=== PATIENT | female | born 1985 ===

== ENCOUNTER 2017-09-09 13:41 | Emergency (ER) | payer OTHER ==
[~2017-09-09] VITALS: Ht 170.2 cm; Wt 62.6 kg
[2017-09-09] MEDS ORDERED: PRENATAL + DHA1 EAC1 (13:49)
== END 2017-09-09 19:04 | disposition home or self-care (01) ==
LOC: ER 13:41
DX: Z34.81 Encounter for supervision of other normal pregnancy, first trimester (principal); O20.0 Threatened abortion

== ENCOUNTER 2017-11-15 20:57 | Outpatient (CLI) | payer OTHER ==
[~2017-11-15 20:57] MED LIST: PRENATAL + DHA1 EAC1
== END 2017-11-16 10:09 | disposition home or self-care (01) ==
LOC: OBS/DEL 20:57
DX: O43.893 Other placental disorders, third trimester (principal); O47.1 False labor at or after 37 completed weeks of gestation; Z34.83 Encounter for supervision of other normal pregnancy, third trimester

== ENCOUNTER 2018-01-16 20:57 | Outpatient (CLI) | payer OTHER | END 2018-01-16 23:00 | disposition home or self-care (01) | LOC: OBS/DEL 20:57 | DX: O23.43 Unspecified infection of urinary tract in pregnancy, third trimester (principal); Z34.03 Encounter for supervision of normal first pregnancy, third trimester ==

== ENCOUNTER 2018-02-13 14:11 | Inpatient (IN) | payer OTHER ==
[~2018-02-13] VITALS: Ht 170.2 cm; Wt 78.0 kg
== END 2018-03-02 19:38 | disposition home or self-care (01) | DRG 775 ==
LOC: OB/GYN 02-27 06:00 → LDR 02-27 06:00 → OB/GYN 02-28 00:43
PROC: 4A1HXCZ Monitoring of Products of Conception, Cardiac Rate, External Approach (ICD-10-PCS; 2018-02-27)
PROC: 0HQ9XZZ Repair Perineum Skin, External Approach (ICD-10-PCS; principal; 2018-02-28)
PROC: 10E0XZZ Delivery of Products of Conception, External Approach (ICD-10-PCS; 2018-02-28)
PROC: 3E033VJ Introduction of Other Hormone into Peripheral Vein, Percutaneous Approach (ICD-10-PCS; 2018-02-28)
PROC: 4A033R1 Measurement of Arterial Saturation, Peripheral, Percutaneous Approach (ICD-10-PCS; 2018-02-28)
DX: O70.0 First degree perineal laceration during delivery (principal); Z37.0 Single live birth; Z3A.39 39 weeks gestation of pregnancy

== ENCOUNTER 2018-02-24 08:36 | Emergency (ER) | payer OTHER ==
[~2018-02-24] VITALS: Ht 170.2 cm; Wt 78.0 kg
== END 2018-02-24 10:24 | disposition home or self-care (01) ==
LOC: ER 08:36
DX: O26.893 Other specified pregnancy related conditions, third trimester (principal); H92.02 Otalgia, left ear; Z34.03 Encounter for supervision of normal first pregnancy, third trimester

== ENCOUNTER 2018-02-25 13:20 | Outpatient (CLI) | payer OTHER | END 2018-02-25 18:18 | disposition home or self-care (01) | LOC: OBS/DEL 13:20 | DX: O47.1 False labor at or after 37 completed weeks of gestation (principal); Z34.03 Encounter for supervision of normal first pregnancy, third trimester ==

== ENCOUNTER 2019-01-30 20:11 | Inpatient (IN) | payer OTHER ==
[~2019-01-30] VITALS: Ht 157.5 cm; Wt 68.9 kg
== END 2019-02-06 16:26 | DRG 831 ==
LOC: OBS/DEL 20:11 → LDR 01-31 15:23 → OB/GYN 02-04 09:19
PROVIDERS: ADMIT Obstetrics & Gynecology
PROC: 4A1HXCZ Monitoring of Products of Conception, Cardiac Rate, External Approach (ICD-10-PCS; principal; 2019-01-31)
PROC: 3E0F7GC Introduction of Other Therapeutic Substance into Respiratory Tract, Via Natural or Artificial Opening (ICD-10-PCS; 2019-02-01)
PROC: 4A033R1 Measurement of Arterial Saturation, Peripheral, Percutaneous Approach (ICD-10-PCS; 2019-02-01)
PROC: B246ZZZ Ultrasonography of Right and Left Heart (ICD-10-PCS; 2019-02-01)
PROC: BY4CZZZ Ultrasonography of Second Trimester, Single Fetus (ICD-10-PCS; 2019-02-03)
DX: O99.513 Diseases of the respiratory system complicating pregnancy, third trimester (principal); J16.8 Pneumonia due to other specified infectious organisms; O98.513 Other viral diseases complicating pregnancy, third trimester; B34.9 Viral infection, unspecified; O26.893 Other specified pregnancy related conditions, third trimester; R50.9 Fever, unspecified; J20.9 Acute bronchitis, unspecified; E86.0 Dehydration; O20.0 Threatened abortion; Z34.83 Encounter for supervision of other normal pregnancy, third trimester; O99.413 Diseases of the circulatory system complicating pregnancy, third trimester; R00.0 Tachycardia, unspecified